=== PATIENT | female | born 1990 | race Caucasian/White ===

== ENCOUNTER 2017-05-28 06:40 | Emergency (ER) | payer SELFPAY ==
[2017-05-28 06:41] VITALS: BP 107/77; PULSE 93; RESP 35; TEMP 36.9; O2SAT 100; BMI 20.9
--- NOTE | 2017-05-28 07:10 | ED.DCSUM_ITS ---
- ER Visit Summary Date of Service: 05/28/17 Chief Complaint: Abdominal pain History of Present Illness: The patient is a 27 F who presents with a history of abdominal pain for the past 3 days. Pain was initially localized to the suprapubic region. She now complains of pain in the right upper quadrant. Movement apparently makes the pain worse. She does complain of nausea without vomiting or diarrhea. Last bowel movement 24 hours ago. There is no change in the color, consistency or caliber of the stool. She denied black or maroon stool. She denies dysuria, frequency, urgency or hematuria. There is no history of renal ureterolithiasis. Last menses approximately 3 weeks ago. She is sexually active. No form of control. There is no history of endometriosis or ovarian cyst. She denies fever, chills night sweats. She denies any ocular, visual or auditory symptoms. She denies chest pain, shortness of breath, dyspnea, dyspnea on exertion or cough. She is intolerance to certain foods. Last evening she had fish and chips which had no effect on her abdominal discomfort. She states the pain occasionally radiates through to her back. She describes the pain as sharp. She does localize the pain to the right upper quadrant. She denies history of trauma. She denies any rash or skin lesions. She denies prior episode of right upper quadrant pain. She states she has had pain in the pelvic area in the past and was not concerned when the discomfort started 3 days ago. He states the pain is now worse. Please read written note for complete detail Physical Examination: Vital signs remarkable for respiratory rate of 35. She does appear uncomfortable. Head is atraumatic normocephalic. Pupils are equal round reactive. Extraocular muscles are intact. TMs are pearly white with landmarks noted. Nares patent with no drainage. Posterior pharynx without erythema or exudate. Uvula is midline. Mucosa is dry there is no dysphonia or dysphasia. Trachea is midline. There is no stridor with auscultation of the neck. Heart is regular without murmur, gallop or rub. S1 and S2 are normal. Lungs are clear to auscultation with good movement of air bilaterally. Abdomen is tender with slight distention and tympany to percussion. Bowel sounds are diminished. Maximal point of tenderness right upper and left upper quadrant. There is no CVA tenderness noted. There are no skin lesions or rash noted. There is no evidence of umbilical or inguinal hernia. There is no clinical Singh sign. Test Results: D, hepatic, lipase and test were all unremarkable. There is a predominance of lymphocytes noted. Patient states her nausea has improved. She is still complains of significant pain. CT of the abdomen and pelvis revealed enteritis. This is consistent with patient's history. The appendix was visualized and is normal. Emergency Department Course and Treatment: IV was established she received 1 L of normal saline wide open since she has not had much to eat or drink and clinically appears dehydrated. She was made n.p.o. Since she is sexually active and does not use any form of control test was obtained since the pain started in the pelvis initially. Because the pain is localized to the right upper quadrant will obtain a CBC, hepatic and lipase. Of note there is no history of alcohol use. She is a non-smoker. She was medicated with Zofran for her nausea and morphine for pain control. Patient continues to complain of significant pain and the pain is on the right side with guarding even though her white count is normal will obtain a CT of the abdomen with IV contrast to evaluate for evidence of mesenteric adenitis versus appendicitis versus other cause of her abdominal pain. Treatment Plan: Bentyl for abdominal pain, Imodium for diarrhea and follow-up with PCP if no improvement in 2-3 days Disposition: Discharged to home Impression: Abdominal pain secondary to enteritis Mild dehydration This note was generated with [employer] dictation software. It may contain incorrect words, spelling, and punctuation that were not noted in review of the chart prior to signing ED Disposition - Plan for ED Patient: Disposition: Home or Assisted Living Chief Complaint: Abd Pain Instructions: ED Gastroenteritis Non Infec Prescriptions: Dicyclomine HCl [Bentyl] 20 mg PO ACHS #10 cap Referrals: Eder Love MD [Primary Care Provider] - 3-5 Days if not improving
[2017-05-28 07:24] LABS: Absolute Lymphocyte Count 3.23 X10^3/ul (0.83-4.51); Absolute Neutrophil Count 3.3 X10^3/uL (2.0-7.7); Basophil# 0.03 X10^3/uL; Basophil% 0.4 % (0-1); Eosinophil# 0.16 X10^3/uL; Eosinophils% 2.2 % (0-5); Hematocrit 38.1 % (37-47); Lymphocyte # 3.23 X10^3/ul (4.0); Lymphocyte % 44.9 % (19-41); Mean Corp Hgb Conc 34.1 g/gl (32-36); Mean Corpuscular Hgb 31.1 pg (27.0-32.0); Mean Corpuscular Volume 91.1 fL (81-99); Mean Platelet Vol. 9.9 fl (6.2-12.0); Monocyte# 0.47 X10^3/uL; Monocyte% 6.5 % (0-10); Neutrophil # 3.29 X10^3/uL (2.7-7.7); Neutrophil % 45.7 % (47-70); POSITIVE COUNT NO; POSITIVE DIFFERENTIAL NO; POSITIVE MORPHOLOGY NO; Platelet Count 216 K/mm3 (150-450); RBC Distribution Width CV 13.5 % (11.6-14.6); RBC Distribution Width SD 44.1 fl (35.1-43.9); Red Blood Count 4.18 M/mm3 (4.2-5.4); White Blood Count 7.2 K/mm3 (4.4-11.0)
[2017-05-28] MEDS: Ondansetron 4 MG/2 ML Vial IV (07:24)
[2017-05-28] MEDS: Morphine 4 MG/ML Syringe IV (07:24)
[2017-05-28] MEDS: 0.9% Normal Saline 1,000 ML 1000 ML IV (07:24)
[2017-05-28 07:34] LABS: AST(SGOT) 16 U/L (15-37); Alanine Aminotransfer ALT/SGPT 18 U/L (13-56); Albumin, Serum 3.9 g/dL (3.2-5.0); Alkaline Phosphatase 58 U/L (45-117); Bilirubin, Direct 0.14 mg/dL (0.00-0.30); Globulin 3.4 g/dL (2.2-4.2); Lipase 385 U/L (73-393); Protein, Total 7.3 g/dL (6.4-8.2)
[2017-05-28 08:06] LABS: Pregnancy, Serum, hCG Quali. NEGATIVE Negative (0-9 Nonpreg)
--- NOTE | 2017-05-28 08:08 | CT_ITS ---
STUDY: CT ABDOMEN AND PELVIS WITH CONTRAST REASON FOR EXAM: Female, 27 years old. Right-sided abdomen pain x3 days with guarding. RADIATION DOSAGE (If Supplied By Facility): CTDIvol = ( 8.62 ) mGy, DLP = ( 484.08 ) mGycm TECHNIQUE: Transaxial images were obtained from the dome of the diaphragm to the symphysis pubis without oral contrast. 100CC ml of Isovue 300 contrast was administered. Sagittal and coronal images were reconstructed. Individualized dose optimization techniques were used for this CT. COMPARISON: None. FINDINGS: The visualized lung bases are unremarkable. The visualized portions of the heart are within normal limits. Normal liver. Normal gallbladder and extrahepatic biliary system. Normal spleen. Normal pancreas. Normal bilateral adrenal glands. Normal right kidney. Normal left kidney. Normal visualized stomach. There are multiple, nondistended, fluid-filled loops of small bowel within the right lower quadrant and the upper central pelvis. There is mild mural thickening of a loop of distal small bowel within the right lower quadrant. Normal colon. The appendix is visualized and appears normal. Normal abdominal aorta. Normal inferior vena cava. Normal retroperitoneum. Normal urinary bladder. Normal abdominal wall. Normal osseous structures. CT/Abdomen/Pelvis W IV Cont ONLY IMPRESSION: Findings most consistent with enteritis. The appendix is identified and appears unremarkable. There is no free fluid. There is no free air. Electronically Signed: Jorge Figueroa MD at 9:05 EDT , Service support ,
[2017-05-28 08:51] VITALS: BP 131/69; PULSE 72; RESP 15; O2SAT 97
[2017-05-28 09:41] VITALS: BP 126/74; PULSE 68; RESP 15; O2SAT 98
== END 2017-05-28 09:42 | disposition home or self-care (01) ==
PROVIDERS: Emergency Provider Emergency Medicine; Family Provider Family Medicine; PCP Family Medicine
DX: K52.9 Noninfective gastroenteritis and colitis, unspecified (principal); E86.0 Dehydration; R10.11 Right upper quadrant pain; R10.12 Left upper quadrant pain
CPT/HCPCS: 74177; 80076; 83690; 84703; 85025; 96361; 96374; 96375; 99283; J7030; Q9967; A4216; J2405

== ENCOUNTER 2017-05-30 16:22 | Emergency (ER) | payer SELFPAY ==
[2017-05-30 16:23] VITALS: BP 116/75; PULSE 113; RESP 16; TEMP 36.2; O2SAT 98; BMI 20.7
--- NOTE | 2017-05-30 17:54 | CT_ITS ---
STUDY: CT ABDOMEN AND PELVIS WITH CONTRAST REASON FOR EXAM: Female, 27 years old. ABDOMINAL PAIN/BACK PAIN, RIGHT/MID X 3DAYS, NAUSEA, CONSTIPATION-LAST BM TODAY, SEEN HER ON SUNDAY AND CT FINDINGS OF ENTERITIS RADIATION DOSAGE (If Supplied By Facility): CTDIvol = ( 7.19 ) mGy, DLP = ( 402.69 ) mGycm TECHNIQUE: Transaxial images were obtained from the dome of the diaphragm to the symphysis pubis with oral contrast. 100ML ml of Isovue 300 contrast was administered. Sagittal and coronal images were reconstructed. Individualized dose optimization techniques were used for this CT. COMPARISON: 05.28.17. FINDINGS: The visualized lung bases are unremarkable. The visualized portions of the heart are within normal limits. Normal liver. Fluid fluid level visualized in the gallbladder suggesting a sludge fluid level. Normal spleen. Normal pancreas. Normal bilateral adrenal glands. Normal right kidney. Normal left kidney. Normal visualized stomach. Normal small intestine. Stool throughout the colon. The appendix is visualized and appears normal. Normal abdominal aorta. Normal inferior vena cava. Normal retroperitoneum. Normal urinary bladder. Normal visualized uterus. Ovaries appear normal. Normal abdominal wall. Normal osseous structures. CT/Abdomen/Pelvis WITH Contrast IMPRESSION: Fluid fluid level visualized in the gallbladder suggesting a sludge fluid level. Constipation Enteritis has resolved. Electronically Signed: Kehinde Tubbs MD at 20:50 EDT , Service support ,
--- NOTE | 2017-05-30 17:59 | RAD_ITS ---
STUDY: X-RAY CHEST REASON FOR EXAM: Female, 27 years old. Upper back pain TECHNIQUE: Single AP portable view of the chest. COMPARISON: None. FINDINGS: The lungs are clear and expanded. There is no demonstrated pleural abnormality. Normal size heart. Normal mediastinum and cheryl. Normal visualized pulmonary arteries. Normal visualized aortic arch and descending thoracic aorta. Normal visualized thoracic spine. Normal visualized ribs, clavicles, and shoulders. There is no demonstrated abnormality of the visualized soft tissue structures of the upper abdomen. RAD/Chest 1 View (Portable) IMPRESSION: Normal x-ray examination of the chest. Electronically Signed: Kehinde Tubbs MD at 18:23 EDT , Service support ,
[2017-05-30 18:21] LABS: Absolute Lymphocyte Count 2.39 X10^3/ul (0.83-4.51); Absolute Neutrophil Count 3.6 X10^3/uL (2.0-7.7); Basophil# 0.02 X10^3/uL; Basophil% 0.3 % (0-1); Eosinophil# 0.06 X10^3/uL; Eosinophils% 0.9 % (0-5); Hematocrit 43.8 % (37-47); Hemoglobin 15.2 g/dl (12.0-15.0); Lymphocyte # 2.39 X10^3/ul (4.0); Lymphocyte % 36.9 % (19-41); Mean Corp Hgb Conc 34.7 g/gl (32-36); Mean Corpuscular Volume 89.4 fL (81-99); Mean Platelet Vol. 9.7 fl (6.2-12.0); Monocyte# 0.39 X10^3/uL; Neutrophil # 3.61 X10^3/uL (2.7-7.7); Neutrophil % 55.7 % (47-70); Platelet Count 212 K/mm3 (150-450); RBC Distribution Width CV 12.9 % (11.6-14.6); RBC Distribution Width SD 41.8 fl (35.1-43.9); White Blood Count 6.5 K/mm3 (4.4-11.0)
[2017-05-30] MEDS: proMETHazine 25 MG/ML Syringe 12.5 MG IV (18:24)
[2017-05-30] MEDS: Morphine 4 MG/ML Syringe IV (18:25)
[2017-05-30] MEDS: 0.9% Normal Saline 1,000 ML 1000 ML IV (18:25)
[2017-05-30 18:26] LABS: POSITIVE COUNT NO; POSITIVE DIFFERENTIAL NO; POSITIVE MORPHOLOGY NO
[2017-05-30 18:33] LABS: ALB/GLOB Ratio 1.2 RATIO (0.9-2.4); AST(SGOT) 19 U/L (15-37); Alanine Aminotransfer ALT/SGPT 16 U/L (13-56); Albumin, Serum 4.3 g/dL (3.2-5.0); Alkaline Phosphatase 64 U/L (45-117); Anion Gap 11 (5-15); BUN 11 mg/dL (7-18); BUN/Creat Ratio 13.4 RATIO (10-20); Calcium,Total 9.1 mg/dL (8.5-10.1); Chloride 107 mmol/L (98-107); Creatinine, Serum 0.82 mg/dL (0.55-1.02); EST Glomerular Filtration Rate 90 mL/min (>60); Est Glom Filt Rate - Afr Amer 109 mL/min (>60); Estimated Creatinine Clearance 105.14 ml/min; Globulin 3.7 g/dL (2.2-4.2); Glucose 72 mg/dL (74-106); Lipase 334 U/L (73-393); Potassium 3.7 mmol/L (3.5-5.1); Sodium Level 138 mmol/L (136-145)
[2017-05-30 18:51] LABS: Lactic Acid 1.6 mmol/L (0.4-2.0)
[2017-05-30 18:58] VITALS: BP 109/68; PULSE 87; RESP 17; O2SAT 98
[2017-05-30] MEDS: 0.9% Normal Saline 1,000 ML 125 ML IV (20:50)
[2017-05-30 20:53] LABS: Mucous, Urine 0 SEEN /hpf (<or=2+); Red Blood Cells-Urine 0 SEEN /hpf (0-5)
[2017-05-30 20:59] VITALS: BP 102/56; PULSE 58; RESP 14; O2SAT 100
[2017-05-30 20:59] LABS: Color, Urine Yellow (Yellow); Glucose, Dipstick Normal (Normal); Ketone-Dipstick 50 mg/dl (Negative); Leukocyte Esterase-Dipstick 100 /ul (Negative); Nitrite-Dipstick Negative (Negative); Occult Blood-Urine 10 /ul (Negative); Protein-Dipstick Negative (Negative); Specific Gravity, Urine 1.015 (1.002-1.030); Urine Bilirubin Dipstick Negative (Negative); Urine Clarity Clear (Clear); Urine Urobilinogen Normal (Normal)
[2017-05-30 21:02] LABS: Internal QC Validated? YES +Cl - CLEAR BKGD; Pregnancy, Urine Negative Negative
[2017-05-30 21:05] LABS: Bacteria RARE /hpf (None Seen); Squamous Epithelial Cells - UA 0-5 SEEN /hpf (5-10); White Blood Cells 0-5 SEEN /hpf (0-5)
--- NOTE | 2017-05-30 21:18 | US_ITS ---
STUDY: ABDOMINAL ULTRASOUND - RIGHT UPPER QUADRANT REASON FOR VISIT: Female, 27 years old. ABD PAIN TECHNIQUE: Ultrasound evaluation of the right upper quadrant was performed with real-time and static gary-scale imaging. TECHNICAL QUALITY: Adequate. COMPARISON: CT OF THE SAME DAY. FINDINGS: Liver: The liver measures 13.5 cm. There is normal echogenicity of the liver. The bile ducts are within normal limits. There is hepatic color flow. The direction of portal flow is hepatopetal. There is no demonstrated mass lesion. Gallbladder: Normal distended gallbladder. The gallbladder wall measures 2.6 mm. There is a negative sonographic Singh's sign. There is no pericholecystic fluid. There is biliary sludge dependent within the gallbladder. Common Bile Duct (C.B.D.): The common bile duct measures 2.6 mm. Pancreas: Normal size of the head, body and tail of the pancreas. There is normal echogenicity of the pancreas. There is no demonstrated pancreatic mass or cyst. Right Kidney: Normal size of the right kidney. The right kidney measures 10.1 X 4.4 X 3.5 cm. Normal renal cortex. The right cortex measures 1 cm. There is no demonstrated renal mass or cyst. There is no right hydronephrosis. US/Gallbladder IMPRESSION: There is biliary sludge dependent within the gallbladder. Electronically Signed: Kehinde Tubbs MD at 22:14 EDT , Service support ,
[2017-05-30 22:16] VITALS: BP 103/51; PULSE 55; RESP 12; O2SAT 100
[2017-05-30 23:12] VITALS: BP 105/66; PULSE 64; RESP 14; O2SAT 98
[2017-05-30] MEDS: HYDROcodone Bitartrate/Apap 5/325 Tablet PO (23:15)
--- NOTE | 2017-05-30 23:44 | ED.DCSUM_ITS ---
- ER Visit Summary Date of Service: 05/30/17 Chief Complaint: Abdominal pain History of Present Illness: The patient is a 27 F who presents with back pain and abdominal pain. Patient was seen for 23 for right-sided abdominal pain and had a CT that showed changes consistent with an enteritis. Patient states now she has pain in her right shoulder all the way down her back to her pelvis. She states that the pain has been intermittent in her abdomen for weeks but got worse on Sunday. She notes nausea but no vomiting. No diarrhea. Last menstrual period was about 1 month ago. She is a patient of Dr. Love. Physical Examination: Afebrile vital signs are stable Gen: Well-nourished well-developed Head: Normocephalic atraumatic Eyes: Perrl EOMI ENT: TMs clear no rhinorrhea moist mucous membranes Neck: Supple no lymphadenopathy no JVD nontender CVS: Regular rate rhythm no murmurs normal S1-S2 Respiratory: No distress clear to auscultation bilaterally chest nontender Abdomen: Soft no tenderness palpation of the right side of the abdomen. Nondistended normal bowel sounds no masses Back: Nontender Extremity: Nontender no edema Skin: Normal color no rash Neuro: alert orientated ?3 CN II-XII intact normal strength sensation reflexes gait cerebellar Psych: Normal affect normal mood Test Results: Basic labs were essentially negative. Urinalysis negative test negative. Liver enzymes were negative except for total bilirubin of 1.2. Normal white blood cell count. Chest x-ray negative. CT of the abdomen pelvis demonstrates sludge in the gallbladder. Formal ultrasound did demonstrate some sludge no pericholecystic fluid. Negative Singh's. Emergency Department Course and Treatment: Patient received pain and nausea medicine as well as fluids. Advised the patient of the findings of her blood work and her imaging. I advised her that given the sludge in her gallbladder she may wish to pursue a HIDA scan with her doctor. Gave her return instructions. Also advised that she may need to follow-up with gastroenterology. I will write for pain medication. She has an appointment with her doctor in 1.5 days. Impression: 1. Acute abdominal pain 2. Gallbladder sludge This note was generated with [employer] software. It may contain incorrect words, spelling, and punctuation that were not noted in review of the chart prior to signing ED Disposition - Plan for ED Patient: Disposition: Home or Assisted Living Chief Complaint: Back Instructions: ED Abdominal Pain Unkn Cause Prescriptions: Hydrocodone Bitart/Apap 5-325 [Winona 5/325] 1 - 2 tab PO Q4H PRN PRN 3 Days #20 tab PRN Reason: Pain proMETHazine tablet [Phenergan] 25 mg PO Q6H PRN PRN #10 tab PRN Reason: Nausea Referrals: Eder Love MD [Primary Care Provider] - Keep Jose Eduardo appointment Abner Ferrari MD [STAFF PHYSICIAN] - (call to arrange follow up appointment)
== END 2017-05-30 23:19 | disposition home or self-care (01) ==
PROVIDERS: Emergency Provider Emergency Medicine; Family Provider Family Medicine; PCP Family Medicine
DX: R10.9 Unspecified abdominal pain (principal); K82.8 Other specified diseases of gallbladder
CPT/HCPCS: 71045; 74177; 76705; 80053; 81001; 81025; 83605; 83690; 85025; 96361; 96374; 96375; 99283; J7030; Q9967; A4216

== ENCOUNTER → 2017-06-19 16:32 | Outpatient (CLI) | payer SELFPAY ==
[2017-06-19 18:19] LABS: CRP < 2.90 mg/L (0.0-3.0)
[2017-06-21 16:10] LABS: Endomysial Antibody IgA Negative (Negative)
[2017-06-22 09:28] LABS: Immunoglobulin A 101 mg/dL (87-352); t-Transglutaminase IgA <2 U/mL (0-3)
== END ==
PROVIDERS: Family Provider Family Medicine; PCP Family Medicine; Visit Provider Internal Medicine Gastroenterology
DX: R10.9 Unspecified abdominal pain (principal)
CPT/HCPCS: 36415; 82784; 83516; 86140; 86255

== ENCOUNTER → 2017-06-22 08:07 | Outpatient (CLI) | payer SELFPAY ==
--- NOTE | 2017-06-22 08:11 | RAD_ITS ---
PROCEDURE: SMALL BOWEL SERIES DATE OF EXAMINATION: June 22, 2017.. INDICATION: Female, 27 years old. Abdominal pain with nausea and vomiting and diarrhea. PHYSICIAN: Drew Valdivia M.D. FLUOROSCOPY TIME (if supplied): (0:52) minutes/seconds TECHNIQUE: Radiographic and fluoroscopic images were taken of the small intestine following the ingestion of barium. COMPARISON: None. FINDINGS: A preliminary supine KUB was obtained. There is an unremarkable bowel gas pattern. Fecal material is present throughout the colon. The lung bases are unremarkable. The osseous structures are normal. The patient orally ingested approximately 12 ounces of thin barium There is evidence of gastroesophageal reflux. Normal visualized fundus, body, and antrum of the stomach. Normal duodenal bulb, C-loop, and proximal jejunum. Normal visualized mucosal folds of the jejunum and ileum. There are no demonstrated dilatations, strictures, or masses of the small intestine. There is no mass displacement of the loops of small intestine. There is a normal motor pattern with barium reaching the colon within approximately 30 minutes. Spot films under fluoroscopic observation demonstrated a normal terminal ileum and ileocecal valve. RAD/Small Bowel Series Only IMPRESSION: Normal small bowel series. Gastroesophageal reflux. Electronically Signed: Drew Valdivia MD at 12:51 EDT Tel [phone], Service support ,
== END ==
LOC: RAD 08:09
PROVIDERS: Family Provider Family Medicine; PCP Family Medicine; Visit Provider Internal Medicine Gastroenterology
DX: R10.9 Unspecified abdominal pain (principal); R19.7 Diarrhea, unspecified
CPT/HCPCS: 74250

== ENCOUNTER 2017-08-05 21:20 | Emergency (ER) | payer SELFPAY ==
[2017-08-05 21:22] VITALS: BP 104/52; PULSE 76; PULSE 88; RESP 14; TEMP 37.3; TEMP 37.5; O2SAT 98; BMI 19.3
[2017-08-05 21:40] LABS: Bedside Glucose 84 mg/dL (70-110)
--- NOTE | 2017-08-05 21:49 | CT_ITS ---
STUDY: CT BRAIN WITHOUT CONTRAST REASON FOR EXAM: Female, 27 years old. Altered mental status RADIATION DOSAGE (If Supplied By Facility): CTDIvol = ( 44.99 ) mGy, DLP = ( 762.36 ) mGycm TECHNIQUE: Transaxial CT imaging of the brain was performed without administration of intravenous contrast material. Sagittal and coronal reconstructed images are provided and reviewed. Individualized dose optimization techniques were used for this CT. COMPARISON: None. FINDINGS: Normal soft tissue structures. Normal calvarium. Normal size ventricles and extra-axial spaces for the patient's age. Normal white matter tracts of the cerebral hemispheres. Normal basal ganglia and thalami. Normal brainstem. Normal cerebellum. There is no intracranial hemorrhage. There are no findings of an acute ischemic infarction. Normal visualized paranasal sinuses. CT/Brain/Head without Contrast IMPRESSION: Normal unenhanced CT scan of the brain. Electronically Signed: Kerwin Pal DO at 23:13 EDT Tel , Service support ,
[2017-08-05 22:07] LABS: Absolute Lymphocyte Count 1.68 X10^3/ul (0.83-4.51); Absolute Neutrophil Count 2.6 X10^3/uL (2.0-7.7); Basophil# 0.01 X10^3/uL; Basophil% 0.2 % (0-1); Eosinophil# 0.03 X10^3/uL; Eosinophils% 0.7 % (0-5); Hematocrit 42.1 % (37-47); Hemoglobin 13.7 g/dl (12.0-15.0); Lymphocyte # 1.68 X10^3/ul (4.0); Lymphocyte % 36.5 % (19-41); Mean Corp Hgb Conc 32.5 g/gl (32-36); Mean Corpuscular Hgb 29.7 pg (27.0-32.0); Mean Corpuscular Volume 91.3 fL (81-99); Mean Platelet Vol. 9.8 fl (6.2-12.0); Monocyte# 0.27 X10^3/uL; Monocyte% 5.9 % (0-10); Neutrophil % 56.5 % (47-70); POSITIVE COUNT NO; POSITIVE DIFFERENTIAL NO; POSITIVE MORPHOLOGY NO; Platelet Count 184 K/mm3 (150-450); RBC Distribution Width CV 13.3 % (11.6-14.6); RBC Distribution Width SD 43.5 fl (35.1-43.9); Red Blood Count 4.61 M/mm3 (4.2-5.4); White Blood Count 4.6 K/mm3 (4.4-11.0)
[2017-08-05] MEDS: 0.9% Normal Saline 1,000 ML 1000 ML IV (22:19)
[2017-08-05] MEDS: Metoclopramide 10 MG/2 ML Vial IV (22:19)
[2017-08-05] MEDS: DiphenhydrAMINE 50 MG/ML Syringe 25 MG IV (22:19)
[2017-08-05 22:23] LABS: Pregnancy, Serum, hCG Quali. NEGATIVE Negative (0-9 Nonpreg)
[2017-08-05 22:28] LABS: ALB/GLOB Ratio 1.3 RATIO (0.9-2.4); AST(SGOT) 17 U/L (15-37); Alanine Aminotransfer ALT/SGPT 17 U/L (13-56); Albumin, Serum 4.6 g/dL (3.2-5.0); Alkaline Phosphatase 56 U/L (45-117); Anion Gap 8 (5-15); BUN 8 mg/dL (7-18); BUN/Creat Ratio 8.7 RATIO (10-20); Chloride 103 mmol/L (98-107); Creatinine, Serum 0.92 mg/dL (0.55-1.02); EST Glomerular Filtration Rate 79 mL/min (>60); Est Glom Filt Rate - Afr Amer 96 mL/min (>60); Estimated Creatinine Clearance 87.51 ml/min; Globulin 3.5 g/dL (2.2-4.2); Glucose 87 mg/dL (74-106); Potassium 3.4 mmol/L (3.5-5.1); Protein, Total 8.1 g/dL (6.4-8.2); Sodium Level 139 mmol/L (136-145)
[2017-08-05 23:24] VITALS: BP 97/65; PULSE 62; RESP 14; O2SAT 97
--- NOTE | 2017-08-05 23:48 | ED.VISSUMM ---
- ER Visit Summary Date of Service: 08/05/17 Chief Complaint: Shaking, nausea, vomiting, and headache History of Present Illness: The patient is a 27 F who presents with shaking episodes, nausea, vomiting, abdominal pain, and headache that began yesterday. Patient saw a movie yesterday and developed a headache and shaking episodes that have been intermittent since that time. Patient states her headache is diffuse. Patient admits to some nausea and vomiting. Patient also admits to diffuse abdominal pain. Family states that the patient has had multiple evaluations for her abdominal pain and has not been given a diagnosis. Patient has had this pain for approximately 6 months. Patient denies any neck pain. Patient denies any fevers or chills. Family noticed that the patient started having intermittent shaking episodes today but did not have any loss of consciousness. Family states the shaking episodes only last a couple seconds then resolve. There are no mental status changes associated with these. Physical Examination: Vital signs are stable. Patient is afebrile. Patient is in no acute distress. Cranial nerves II through XII are intact. Strength is 5/5 bilaterally upper and lower extremities. There are no focal sensory deficits noted. Oral mucosa is pink and moist. Neck is supple. Trachea is midline. There is no JVD noted. Heart was regular rate and rhythm. Lungs are clear and equal bilaterally. Abdomen is soft. There is some mild diffuse tenderness. There is no rebound or guarding noted. The remaining physical exam is within normal limits. Test Results: CT scan of the brain was obtained was within normal limits. CBC and comprehensive metabolic profile were within normal limits. Emergency Department Course and Treatment: Patient was given IV fluids, Reglan, and Benadryl. Patient states her headache was improving after this. Patient was given a dose of Toradol. Patient was advised to follow-up with her primary care physician in 3-5 days for further evaluation of her abdominal pain. Patient was advised that her headache could be a migraine type headache which needs to follow-up for further evaluation of that as well. Patient and family understood and were agreeable with the plan. All questions were answered. Disposition: Discharged home Impression: Headache, abdominal pain This note was generated with [employer] software. It may contain incorrect words, spelling, and punctuation that were not noted in review of the chart prior to signing ED Disposition - Plan for ED Patient: Disposition: Home or Assisted Living Chief Complaint: Alt LOC Diagnosis: Headache, Abdominal pain Instructions: ED Cephalgia Unspecified, ED Abdominal Pain Unkn Cause Referrals: Eder Love MD [Primary Care Provider] -
[2017-08-06 00:27] VITALS: BP 101/55; PULSE 66; RESP 17; O2SAT 97
[2017-08-06] MEDS: Ketorolac 30 MG/ML Syringe IV (01:04)
[2017-08-06] MEDS: Ondansetron 4 MG/2 ML Vial IV (01:06)
== END 2017-08-06 01:14 | disposition home or self-care (01) ==
PROVIDERS: Emergency Provider Emergency Medicine; Family Provider Family Medicine; PCP Family Medicine
DX: R51 Headache (principal); R10.84 Generalized abdominal pain
CPT/HCPCS: 70450; 80053; 82962; 84703; 85025; 96361; 96374; 96375; 99284; J7030; A4216; J2405